=== PATIENT | female | born 1990 | race Hispanic/Latino ===

== ENCOUNTER 2017-03-20 23:10 | Emergency (ER) | payer BC ==
[2017-03-20 23:20] VITALS: BP 98/48; PULSE 51; RESP 16; TEMP 97.6; O2SAT 100
[2017-03-20] MEDS ORDERED: Sodium Chloride 0.9% 1,000 ML IV STA ×2 (23:27→23:31)
[2017-03-20] MEDS ORDERED: Alum-Mag Hydrox-Simethicone Susp (30 mL) PO ONE (23:29)
[2017-03-20] MEDS ORDERED: Simethicone 80 mg Chewtab PO STA (23:30)
--- NOTE | 2017-03-20 23:40 | ED PDOC ---
HPI: Abdomen Time Seen by Provider: 03/20/17 23:28 Chief Complaint (Nursing): Abdominal Pain Chief Complaint (Provider): abdominal pain History Per: Patient (26 y/o female here with complaint of generalized abdominal pain x 2 hours associated with nausea. Patient has h/o ongoing constipation but feels symptoms are unrelated to symptoms. Denies any vomiting/ fevers. No h/o abdominal surgeries. ) Past Medical History Reviewed: Historical Data, Nursing Documentation, Vital Signs Vital Signs: Last Vital Signs Temp 97.6 F 03/20/17 23:14 Pulse 51 L 03/20/17 23:14 Resp 16 03/20/17 23:14 BP 98/48 L 03/20/17 23:14 Pulse Ox 100 03/20/17 23:46 - Family History Family History: States: No Known Family Hx - Allergies Allergies/Adverse Reactions: Allergies Allergy/AdvReac Type Severity Reaction Status Date / Time No Known Allergies Allergy Verified 03/20/17 23:27 Review of Systems ROS Statement: Except As Marked, All Systems Reviewed And Found Negative Gastrointestinal: Positive for: Nausea, Abdominal Pain Physical Exam - Reviewed Nursing Documentation Reviewed: Yes Vital Signs Reviewed: Yes - Physical Exam Appears: Positive for: Well, Non-toxic, No Acute Distress Head Exam: Positive for: ATRAUMATIC, NORMAL INSPECTION, NORMOCEPHALIC Skin: Positive for: Normal Color, Warm, DRY Eye Exam: Positive for: EOMI, Normal appearance, PERRL ENT: Positive for: Normal ENT Inspection Neck: Positive for: Normal, Painless ROM Cardiovascular/Chest: Positive for: Regular Rate, Rhythm Respiratory: Positive for: CNT, Normal Breath Sounds Gastrointestinal/Abdominal: Positive for: Normal Exam, Bowel Sounds, Soft, Other (decreased bowel sounds.) Back: Positive for: Normal Inspection Extremity: Positive for: Normal ROM Neurologic/Psych: Positive for: Alert, Oriented - Laboratory Results Result Diagrams: 03/20/17 23:45 Urine POC: Negative Urine dip results: Positive for: Leukocyte Esterase (trace), Blood (patient states she is currently menstruating). Negative for: Nitrate, Ketones, Glucose , Bilirubin, Protein - ECG O2 Sat by Pulse Oximetry: 100 - Progress ED Course And Treament: ns 1 liter wide open maalox 30 ml po x 1 dose zofran 4 mg iv x 1 dose bentyl 20 mg x 1 dose simethicone 80mg x 1 dose Disposition - Clinical Impression Clinical Impression: Abdominal pain in female - Patient ED Disposition Is Patient to be Admitted: Transfer of Care - Disposition Disposition: Transfer of Care Disposition Time: 00:00 Condition: FAIR Forms: [facility] (Albanian) Patient Signed Over To: Nicole Garvey Handoff Comments: re-eval/ may need CT evaluation of abdominal pain
[2017-03-20] MEDS ORDERED: Alum-Mag Hydrox-Simethicone Susp (30 mL) ONE (23:48)
[2017-03-20 23:49] LABS: BASO % 0.5 % (0.0-2.0); EOS # 0.1 K/uL (0.0-0.7); HEMATOCRIT 37.7 % (34.0-47.0); LYMPH # 2.2 K/uL (1.0-4.3); LYMPH % 21.6 % (20.0-40.0); MEAN CELL VOLUME 96.6 fl (81.0-99.0); MEAN CORPUSCULAR HEMOGLOBIN 32.5 pg (27.0-31.0); MEAN CORPUSCULAR HGB CONC 33.7 g/dL (33.0-37.0); MEAN PLATELET VOLUME 7.8 fl (7.2-11.7); MONO # 0.5 K/uL (0.0-0.8); MONO % 4.8 % (0.0-10.0); NEUT # 7.2 K/uL (1.8-7.0); NEUT % 72.1 % (50.0-75.0); RED CELL DISTRIBUTION WIDTH 12.4 % (11.5-14.5)
[2017-03-20 23:56] LABS: ALB/GLOB RATIO 1.7 (1.0-2.1); ALKALINE PHOSPHATASE 39 U/L (38-126); ALT/SGPT 36 U/L (9-52); AST/SGOT 29 U/L (14-36); BILIRUBIN,TOTAL 0.1 mg/dl (0.2-1.3); BLOOD UREA NITROGEN 12 mg/dl (7-17); CALCIUM 8.7 mg/dL (8.4-10.2); CARBON DIOXIDE 22 mmol/L (22-30); CHLORIDE 102 mmol/L (98-107); GFR AFRICAN-AMERICAN > 60; GLUCOSE,RANDOM 119 mg/dL (65-105); LIPASE 28 U/L (23-300); POTASSIUM 3.6 MMOL/L (3.6-5.0); SODIUM 137 mmol/l (132-148); TOTAL PROTEIN 6.7 G/DL (6.3-8.2)
[2017-03-21 00:01] LABS: RBC URINE 15 /hpf (0-3); URINE BACTERIA RARE (<OCC); URINE BILIRUBIN NEGATIVE (NEGATIVE); URINE BLOOD LARGE (NEGATIVE); URINE COLOR YELLOW (YELLOW); URINE GLUCOSE (UA) NEG (Normal); URINE KETONE NEGATIVE (NEGATIVE); URINE LEUKOCYTE ESTERASE LARGE Leu/uL (Negative); URINE PROTEIN NEGATIVE (NEGATIVE); URINE UROBILINOGEN 0.2-1.0 mg/dL (0.2-1.0); WBC URINE 38 /hpf (0-5)
--- NOTE | 2017-03-21 00:07 | ED PDOC ---
- Laboratory Results Result Diagrams: 03/20/17 23:45 03/20/17 23:45 Urine POC: Negative - ECG O2 Sat by Pulse Oximetry: 100 Pulse Ox Interpretation: Normal - Other Rad KUB X-Ray: Interpreted by Me, Viewed By Me X-Ray Interpretation: moderate constipation, no obstruction Medical Decision Making Medical Decision Making: Case was signed out to video games storywriter for [place] Coelho pending re-evaluation and UA. Patient states initially she felt better after meds given earlier but now she has more pain. Pain is worse when she stands up. IV Toradol was given. UTI noted , IV Rocephin ordered but patient refused stating she prefers prescriptions to go home with. Patient also given magnesium citrate and fleets enema. Patient given prescription for Macrobid and was instructed to take MiraLAX daily to relieve constipation. Advised follow-up with primary care doctor. Disposition - Clinical Impression Clinical Impression: Urinary tract infection, Constipation - POA Present On Arrival: None - Disposition Referrals: Rachel BULLARD,MD Fred [Medical Doctor] - Disposition: Routine/Home Disposition Time: 01:10 Condition: STABLE Additional Instructions: Take antibiotics as directed. Start taking MiraLAX daily for relief of constipation. Drink plenty of fluids. Follow-up with offset printing operator for further evaluation. Prescriptions: Nitrofurantoin Macrocrystals [Macrobid] 100 mg PO BID #14 cap Instructions: Constipation (ED), High Fiber Diet (ED), Urinary Tract Infection in Women (ED) Forms: [facility] (Portuguese) Results - Lab Results Lab Results: 03/20/17 03/20/17 03/20/17 23:54 23:45 23:45 WBC 10.0 RBC 3.90 Hgb 12.7 Hct 37.7 MCV 96.6 MCH 32.5 H MCHC 33.7 RDW 12.4 Plt Count 264 MPV 7.8 Neut % (Auto) 72.1 Lymph % (Auto) 21.6 Bea[place]gard % (Auto) 4.8 Eos % (Auto) 1.0 Baso % (Auto) 0.5 Neut # 7.2 H Lymph # 2.2 Bea[place]gard # 0.5 Eos # 0.1 Baso # 0.0 Sodium 137 Potassium 3.6 Chloride 102 Carbon Dioxide 22 Anion Gap 16 BUN 12 Creatinine 0.8 Est GFR ( Amer) > 60 Est GFR (Non-Af Amer) > 60 Random Glucose 119 H Calcium 8.7 Total Bilirubin 0.1 L AST 29 ALT 36 Alkaline Phosphatase 39 Total Protein 6.7 Albumin 4.2 Globulin 2.5 Albumin/Globulin Ratio 1.7 Lipase 28 Urine Color Yellow Urine Clarity Cloudy Urine pH 6.0 Ur Specific Ashby 1.019 Urine Protein Negative Urine Glucose (UA) Neg Urine Ketones Negative Urine Blood Large Urine Nitrate Negative Urine Bilirubin Negative Urine Urobilinogen 0.2-1.0 Ur Leukocyte Esterase Large Urine RBC (Auto) 15 H Urine Microscopic WBC 38 H Ur Squamous Epith Cells 6 H Urine Bacteria Rare Hyaline Casts 0-2
[2017-03-21] MEDS ORDERED: Magnesium Citrate Oral SOL (300 ml) PO STA (00:48)
[2017-03-21] MEDS ORDERED: Sodium Chloride 0.9% 1,000 ML IV STA (00:48)
[2017-03-21] MEDS ORDERED: cefTRIAXone (Rocephin) 1 gm Inj ONE (01:01)
[2017-03-21] MEDS ORDERED: Magnesium Citrate Oral SOL (300 ml) ONE (01:01)
--- NOTE | 2017-03-21 08:44 | RAD ---
HISTORY: pain, constipation COMPARISON: No prior. FINDINGS: BOWEL: The stomach is distended with retained air however gas seen in the small large-bowel loops with its appear nonobstructive grossly. A linear band of gas in the right upper quadrant approaching the gallbladder fossa which is of uncertain origin. It is unclear whether this may represent mural gas within gallbladder wall or even proximal duodenum. Follow-up CT of the abdomen pelvis with intravenous and oral contrast recommended. Mildly prominent retained fecal material scattered throughout the colon which may indicate an element of constipation. BONES: Normal. OTHER FINDINGS: None. IMPRESSION: 1. Curvilinear gas in the right upper quadrant impression gallbladder fossa may reflect intramural gas within the gallbladder or possibly proximal small bowel. Follow-up CT of the abdomen pelvis with oral and intravenous contrast is advised. Emergency Department has been notified by way of PA review. 2. Potential constipation.
== END 2017-03-21 01:26 | disposition home or self-care (01) ==
LOC: H.ER 23:10
DX: N39.0 Urinary tract infection, site not specified (principal); K59.00 Constipation, unspecified
CPT/HCPCS: 74000; 80053; 81003; 81025; 83690; 85025; 96361; 96374; 96375; 99282; J1885; J2405; J7040

== ENCOUNTER 2017-03-26 06:08 | Emergency (ER) | payer BC ==
[2017-03-26 06:33] VITALS: BP 108/66; PULSE 68; RESP 16; TEMP 98; O2SAT 100
== END 2017-03-26 06:48 | disposition left against medical advice (07) ==
LOC: H.ER 06:08
DX: Z02.89 Encounter for other administrative examinations (principal)